=== PATIENT | male | born 1990 | race Caucasian/White ===

== ENCOUNTER 2021-06-05 14:30 | Emergency (ER) | payer OTHER ==
[~2021-06-05] VITALS: Ht 193 cm; Wt 165.7 kg
[2021-06-05] MEDS ORDERED: ABIL10TA9 PO (14:36)
[2021-06-05] MEDS ORDERED: LIDOCAINE 1% MDV 20ML VIAL IM ONE (16:05)
[2021-06-05] MEDS ORDERED: BACT800T5 PO (18:06)
[2021-06-05] MEDS ORDERED: NEOSPORIN TOP OINT 15GM TOP ONE (18:10)
[2021-06-05 18:47] VITALS: BP 144/90
== END 2021-06-05 18:50 | disposition home or self-care (01) ==
LOC: M ED 14:30
DX: S61.012A Laceration without foreign body of left thumb without damage to nail, initial encounter (principal); S61.412A Laceration without foreign body of left hand, initial encounter; W26.8XXA Contact with other sharp object(s), not elsewhere classified, initial encounter; Y92.828 Other wilderness area as the place of occurrence of the external cause; Y93.29 Activity, other involving ice and snow; Y99.9 Unspecified external cause status; F32.A Depression, unspecified; Z88.0 Allergy status to penicillin; Z79.899 Other long term (current) drug therapy